=== PATIENT | male | born 1930 | race Caucasian/White ===

== ENCOUNTER → 2016-12-31 | Outpatient (CLI) | payer MEDICARE | LOC: RAD 15:42 | PROVIDERS: ATTEND Family Medicine | DX: R06.02 Shortness of breath (principal); I51.7 Cardiomegaly | CPT/HCPCS: 71020 ==

== ENCOUNTER → 2016-12-31 | Outpatient (REF) | payer MEDICARE ==
[2016-12-31 16:15] LABS: ALBUMIN 3.7 g/dL (3.4-5.0); ALKALINE PHOSPHATASE 118 U/L (38-126); BASOPHILS % (AUTO) 0 % (0-2); BUN/CREATININE RATIO 21 (10-20); CALCULATED IONIZED CALCIUM 3.8 mg/dL (3.8-4.6); EOSINOPHILS # (AUTO) 0.2 10^3uL; EOSINOPHILS % (AUTO) 3 % (0-4); LYMPHOCYTES # (AUTO) 1.4 X10^3; MEAN CORPUSCULAR HEMOGLOBIN 31.1 PG (26.0-34.0); MEAN CORPUSCULAR HGB CONC 33.3 g/dL (31.0-37.0); MEAN CORPUSCULAR VOLUME 93 FL (80-100); MEAN PLATELET VOLUME 9.2 FL (6.0-9.5); MONOCYTES % (AUTO) 11 % (3-11); NEUTROPHILS # (AUTO) 6.5 X10^3; NEUTROPHILS % (AUTO) 71 % (51-67); PLATELET COUNT 207 10^3uL (150-450); TOTAL PROTEIN 6.6 g/dL (6.4-8.5); WHITE BLOOD COUNT 9.19 10^3uL (4.0-11.0)
== END ==
LOC: LAB 16:02
PROVIDERS: ATTEND Family Medicine
DX: R06.02 Shortness of breath (principal)
CPT/HCPCS: 80053; 85025; 86140

== ENCOUNTER → 2017-01-11 | Outpatient (REF) | payer MEDICARE ==
[2017-01-11 17:10] LABS: ANION GAP 14.6 MEQ/L (3-15)
== END ==
LOC: LAB 15:31
PROVIDERS: ATTEND Family Medicine
DX: R63.4 Abnormal weight loss (principal)
CPT/HCPCS: 80048

== ENCOUNTER → 2017-02-10 | Outpatient (REF) | payer MEDICARE | LOC: LAB 08:32 | PROVIDERS: ATTEND Family Medicine | DX: Z53.9 Procedure and treatment not carried out, unspecified reason (principal) ==